=== PATIENT | female | born 1975 | race Caucasian/White ===

== ENCOUNTER 2022-12-26 10:54 | Emergency (ER) | payer OTHER ==
[~2022-12-26] VITALS: Ht 165.1 cm; Wt 99.8 kg
--- NOTE | 2022-12-26 11:15 | NUR ---
REQUESTING VOLUNTARY PSYCH ADMISSION TO [facility]. PT STATES "I WAS SUICIDAL A FEW DAYS AGO, BUT NOT AT THE MOMENT." DENIES HI.
--- NOTE | 2022-12-26 11:22 | NUR ---
URINE SAMPLE COLLECTED AND SENT TO LAB
--- NOTE | 2022-12-26 11:23 | NUR ---
SECURITY AT BEDSIDE FOR WANDING AND BLONGINGS ISOLATION
--- NOTE | 2022-12-26 11:31 | NUR ---
COVID SWAB COLLECTED AND SENT TO LAB
[2022-12-26 12:05] LABS: BASOPHILS % (AUTO) 0.5 % (0.0-2.0); EOSINOPHILS % (AUTO) 1.3 % (0.0-6.0); HEMATOCRIT 37 % (33-45); HEMOGLOBIN 12.3 g/dL (11.5-14.8); LYMPHOCYTES # (AUTO) 3.4 K/uL (0.8-4.8); LYMPHOCYTES % (AUTO) 40.5 % (20.0-44.0); MEAN CORPUSCULAR HGB CONC 33 g/dl (31.0-36.0); MEAN CORPUSCULAR VOLUME 90 fL (82-100); MONOCYTES # (AUTO) 0.6 K/uL (0.1-1.30); MONOCYTES % (AUTO) 7.3 % (2.0-12.0); NEUTROPHILS # (AUTO) 4.2 K/uL (1.8-8.9); NEUTROPHILS % (AUTO) 50.4 % (43.0-81.0); PLATELET COUNT (AUTO) 320 K/uL (150-450); RED BLOOD CELL COUNT(AUTO) 4.13 MIL/uL (4.0-5.2); WHITE BLOOD COUNT (AUTO) 8.3 K/uL (4.3-11.0)
[2022-12-26 12:12] LABS: CALCIUM, SERUM 8.4 mg/dL (8.5-10.1); CARBON DIOXIDE 24 mmol/L (21-32); CHLORIDE 109 mmol/L (98-107); CREATININE 0.8 mg/dL (0.6-1.3); GLUCOSE 113 mg/dL (74-106); POTASSIUM 3.8 mmol/L (3.5-5.1); SODIUM SERUM 142 mmol/L (136-145); UREA NITROGEN, BLOOD 10 mg/dL (7-18)
[2022-12-26 12:18] LABS: ALANINE AMINOTRANSFERASE 27 U/L (12-78); ALBUMIN 3.4 g/dL (3.4-5.0); ALKALINE PHOSPHATASE 103 U/L (46-116); ASPARTATE AMINOTRANSFERASE 17 U/L (15-37); BILIRUBIN,DIRECT 0.1 mg/dL (0.0-0.2); BILIRUBIN,TOTAL 0.2 mg/dL (0.2-1.0); TOTAL PROTEIN, SERUM 6.4 g/dL (6.4-8.2)
[2022-12-26 12:19] LABS: ALCOHOL, BLOOD < 3 mg/dL (0-0)
--- NOTE | 2022-12-26 12:34 | NUR ---
FAXED CLINICALS TO [facility].
--- NOTE | 2022-12-26 14:54 | NUR ---
Patient does not wish to proceed with psychiatric care/admission as she requested by Dr. CARRERA because nobody is allowing her to smoke cigarette. Patient given information related to possible complications, up to and including ,and harming herself which could occur as a result of leaving the hospital at this time. Patient verbalizes understanding of risks involved due to leaving against medical advice. Patient has signed AMA form.
[2022-12-26 15:05] VITALS: BP 123/81
== END 2022-12-26 15:05 | disposition home or self-care (01) ==
LOC: ER 10:59
DX: R45.851 Suicidal ideations (principal); F15.10 Other stimulant abuse, uncomplicated; F32.9 Major depressive disorder, single episode, unspecified; F17.200 Nicotine dependence, unspecified, uncomplicated; Z20.822 Contact with and (suspected) exposure to COVID-19; Z60.2 Problems related to living alone
CPT/HCPCS: 99285; 85025; 80048; 80076; 36415; 87426; 80143; 80320; C9803; G0480